=== PATIENT | female | born 1930 | race Caucasian/White ===

== ENCOUNTER 2016-08-15 22:21 | Emergency (ER) | payer MEDICARE, MEDICAID ==
--- NOTE | 2016-08-15 22:37 | ED Physician Chart ---
Chief Complaint/HPI - Patient Information Date Seen:: 08/15/16 Time Seen:: 22:31 Chief Complaint:: head inj History of Present Illness:: pt was at her NH and tried to walk to the BR on her own (which she isnt supposed to do due to gait instability chronic)...pt says she recalls falling due to catching her foot on rubber mat on floor. she recalls fall and there was no loc. no recent illness. no chest/back pain. no n/v/d. no pelvic/hip pain. no neck pain. no abd p. she has a lac on rt eyebrow region w bleeding ctrld. no loss vision. Allergies:: Allergies Allergy/AdvReac Type Severity Reaction Status Date / Time Penicillins Allergy Verified 08/15/16 22:27 Historian:: Patient, EMS Review:: Transfer documents Reviewed Review of Systems - Review of Systems General/Constitutional: No fever, No chills, No weight loss, No weakness, No diaphoresis, No edema, No loss of appetite Skin: No skin lesions, No rash, No bruising Head: No headache, No light-headedness Eyes: No loss of vision, No pain, No diplopia ENT: No earache, No nasal drainage, No sore throat, No tinnitus, Other (trauma/ lac) Neck: No neck pain, No swelling, No thyromegaly, No stiffness, No mass noted Cardio Vascular: No chest pain, No palpitations, No PND, No orthopnea, No edema Pulmonary: No SOB, No cough, No sputum, No wheezing GI: No nausea, No vomiting, No diarrhea, No pain, No melena, No hematochezia, No constipation, No hematemesis G/U: No dysuria, No frequency, No hematuria Musculoskeletal: No bone or joint pain, No back pain, No muscle pain Endocrine: No polyuria, No polydipsia Psychiatric: No prior psych history, No depression, No anxiety, No suicidal ideation Hematopoietic: No bruising, No lymphadenopathy Allergic/Immuno: No urticaria, No angioedema Neurological: No syncope, No focal symptoms, No weakness, No paresthesia, No headache, No seizure, No dizziness, No confusion, No vertigo Past Medical History - Past Medical History Past Medical History: No significant medical hx Social History: Non Smoker, No Alcohol, Care Facility Medication: Reviewed Family Medical History - Family Member Mother History Unknown: Yes Physical Exam - Physical Examination General/Constitutional: Awake, Well-developed, well-nourished, Alert, No distress, GCS 15, Non-toxic appearing, Ambulatory Other Head comments:: rt eyebrow has a 2.5 cm lac ...no hair to worry about in vicinity of cut. no damage to orbicularis muscles. eomi/perrla. Eyes: Lids, conjuctiva normal, PERRL, EOMI Skin: Nl inspection, No rash, No skin lesions, No ecchymosis, Well hydrated, No lymphadenopathy ENMT: External ears, nose nl, Nasal exam nl, Lips, teeth, gums nl Neck: Nontender, Full ROM w/o pain, No JVD, No nuchal rigidity, No bruit, No mass, No stridor Respiratory: Nl effort/Exclusion, Clear to Auscultation, No Wheeze/Rhonchi/Rales Cardio Vascular: RRR, No murmur, gallop, rubs, NL S1 S2 GI: No tenderness/rebounding/guarding, No organomegaly, No hernia, Normal BS's, Nondistended, No mass/bruits, No McBurney tenderness : No CVA tenderness Extremities: No tenderness or effusion, Full ROM, normal strength in all extremities, No edema, Normal digits & nails Neuro/Psych: Alert/oriented, DTR's symmetric, Normal sensory exam, Normal motor strength, Judgement/insight normal, Mood normal, Normal gait, No focal deficits Misc: normal gait, Normal back, No paraspinal tenderness Labs/Radiology/EKG Results - Lab Results Results: Laboratory Tests 08/15/16 08/15/16 08/15/16 22:41 22:41 22:41 WBC 4.7 L RBC 4.10 Hgb 12.7 Hct 37.2 MCV 90.7 MCH 31.0 MCHC Differential 34.1 RDW 12.8 Plt Count 202 MPV 8.0 Neutrophils % 61.4 Lymphocytes % 22.5 Monocytes % 12.9 H Eosinophils % 2.4 Basophils % 0.8 PT 16.6 H INR 1.56 H PTT (Actin FS) 27.6 Sodium 132 L Potassium 4.1 Chloride 99 Carbon Dioxide 28.0 Anion Gap 9.1 BUN 21 Creatinine 0.6 Est GFR ( Amer) TNP Est GFR (Non-Af Amer) TNP BUN/Creatinine Ratio 35.0 Glucose 106 H Calcium 9.5 Total Bilirubin 0.3 AST 22 ALT 15 Alkaline Phosphatase 69 Total Protein 6.4 Albumin 3.6 L Globulin 2.8 Albumin/Globulin Ratio 1.3 - Radiology Results Results: ct head pos ? intraparenchimal bleed rt temporal area (area of decreased density at rt parietal area ? old cva...this was not reported in transfer records but dtr-in-law arrives 11;45p and confirms hx of prior cva) ct face no fx - EKG Interpretations EKG Time:: 23:20 Rate & Rhythm: a fib w vent rate 89 [place]: -19 Intervals: flat t wave in v1/2. qtc 463 Assessment Location:: rt eyebrow region 2.5 cm lac w deep extension but no inj to orbicular muscles. no f.b wound washed w betadyne. explored no f.b. closed w dermabond w good approximation. ED Septic Shock - . Is Septic Shock (SBP<90, OR Lactate>4 mmol\L) present?: No Reassessment (Disposition) - Reassessment Reassessment:: (11;22p) i have seen head ct after tech alerted me it appears abnormal. agree concern for rt side intraparynchymal bleed. pt neuro status unchanged on reexam. staff alerted we need to do neuro transfer. official read on ct is pending. (11;35p) case dw dr cruz at [facility] [place] who wants to see pics(sent by text at request)...will admit if agrees w my read (still have not got official read of head ct.) after dw dr cruz will give vit k...pros vs cons considered risk of ic bleed worse vs risk from a fib... awaiting transfer acceptance. (11:50p) ...dr lam has accepted transfer. //diamond dtr in law (Sunita Vasquez) who is in ED now. she is alerting son and rest of family. Reassessment Condition:: Improved - Diagnosis Diagnosis:: 1) intracraneal bleed s/p fall 2) 2.5 cm rt eyebrow lac s/p dermabond closure - Patient Disposition Discharge/Transfer:: Home Condition at Disposition:: Improved
[2016-08-15 22:54] LABS: % BASOPHILS 0.8 % (0.0-2.0); % EOSINOPHILS 2.4 % (0.0-5.0); % LYMPHOCYTES 22.5 % (20.0-50.0); % MONOCYTES 12.9 % (2.0-10.0); % NEUTROPHILS 61.4 % (40.0-80.0); HEMATOCRIT 37.2 % (35.0-45.0); HEMOGLOBIN 12.7 gm/dL (11.7-16.1); MEAN CELL VOLUME 90.7 fl (81-100); MEAN CORPUSCULAR HGB CONC 34.1 pg (28.0-36.0); NEUTROPHILE ABSOLUTE 2.9 Th/cmm (1.8-8.0); PLATELET COUNT 202 Th/cmm (150-400); RED CELL DISTRIBUTION WIDTH 12.8 % (11.5-20.0); WHITE BLOOD COUNT 4.7 Th/cmm (4.8-10.8)
[2016-08-15 23:04] LABS: INR 1.56 (0.5-1.4); PROTHROMBIN TIME (TEST) 16.6 SECONDS (9.5-11.5)
[2016-08-15 23:06] LABS: ALB/GLOB RATIO 1.3 (1.0-1.8); ALKALINE PHOSPHATASE 69 U/L (34-104); ANION GAP 9.1 (7.0-16.0); BILIRUBIN,TOTAL 0.3 mg/dL (0.3-1.0); BUN - UREA NITROGEN 21 mg/dL (7-25); CALCIUM SERUM 9.5 mg/dL (8.6-10.3); CHLORIDE 99 mEq/L (98-107); CREATININE - SERUM 0.6 mg/dL (0.6-1.2); GLUCOSE 106 mg/dL (70-105); POTASSIUM SERUM 4.1 mEq/L (3.5-5.1); SGOT 22 U/L (13-39); SGPT/ALT 15 U/L (7-52); SODIUM SERUM 132 mEq/L (136-145)
--- NOTE | 2016-08-16 10:08 | Diagnostic Imaging Report ---
CT scan of the brain without intravenous contrast HISTORY: Headache, trauma Total DLP equals 715 CTDI equals 32.3 Axial sections were obtained from the base of the skull to the vertex There is enlargement of ventricular system along with enlargement of cerebral sulci and subarachnoid cisterns reflecting generalized atrophy. Extensive hypodensity is noted throughout the supratentorial periventricular and white matter regions without mass effect. The findings may be associated with chronic small vessel ischemic disease. More focal hypodensity and volume loss reflecting encephalomalacia seen in the right occipital region. 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 Of particular note is hyperdensity within the cortex of the right occipital region consistent with acute hemorrhage. Mild subarachnoid hemorrhage cannot be excluded. In view of the patient's history, the findings may be associated with posttraumatic acute hemorrhagic contusion. Severe dense atherosclerotic calcification noted in the region of the vertebral and basilar arteries base of the skull. IMPRESSION: 1. Hyperdensity within the cortex of the right occipital region. In view the patient's history, findings may be associated with posttraumatic acute hemorrhagic contusion. Follow-up advised. 2. Generalized atrophy. More focal encephalomalacia noted in the right occipital region consistent with changes of an old infarct 3. Extensive supratentorial white matter changes that may be associated with chronic small vessel ischemic disease.
--- NOTE | 2016-08-16 10:10 | Diagnostic Imaging Report ---
CT scan facial bones HISTORY: Pain, trauma Axial sections were obtained through the facial bones. Additional coronal and sagittal reformatted images are provided. There is retention of normal bony margins about the orbits. No fractures. The zygomatic arches are intact. The pterygoid plates are intact. Nasal bones appear normal. There is marked deviation of the nasal septum to the right. Normal aeration of the paranasal sinuses. Mild soft tissue swelling noted over the right frontal region of the skull. IMPRESSION: 1. No acute bony abnormalities 2. Deviation of the nasal septum to the right 3. Mild soft tissue swelling over the right frontal region of the skull.
== END 2016-08-16 00:30 | disposition short-term general hospital (02) ==
LOC: ER 22:21
DX: S01.111A Laceration without foreign body of right eyelid and periocular area, initial encounter (principal); S06.300A Unspecified focal traumatic brain injury without loss of consciousness, initial encounter; Z88.0 Allergy status to penicillin; W19.XXXA Unspecified fall, initial encounter; Y93.89 Activity, other specified; Y92.89 Other specified places as the place of occurrence of the external cause; Y99.8 Other external cause status
CPT/HCPCS: 12011; 36415-UA; 70450-TC; 70486-TC; 80053-TC; 85025-TC; 85610-TC; 93005; Z7610